=== PATIENT | female | born 2000 | race Caucasian/White ===

== ENCOUNTER 2023-08-12 08:00 | Outpatient (CLI) | payer MEDICAID ==
[2023-08-12 18:55] LABS: CHLAMYDIA TRACHOMATIS DNA NEGATIVE (NEGATIVE); NEISSERIA GONORRHOEAE DNA NEGATIVE (NEGATIVE)
[2023-08-12 19:18] LABS: BACTERIAL VAGINOSIS DNA NEGATIVE (NEGATIVE); CANDIDA GLABRATA DNA NEGATIVE (NEGATIVE); CANDIDA GROUP DNA POSITIVE (NEGATIVE); CANDIDA KRUSEI DNA NEGATIVE (NEGATIVE); TRICHOMONAS VAGINALIS DNA NEGATIVE (NEGATIVE)
== END 2023-08-12 23:59 | disposition home or self-care (01) ==
LOC: LAB.WC 08:00
PROVIDERS: ATTEND Nurse Practitioner
DX: N89.8 Other specified noninflammatory disorders of vagina (principal)
CPT/HCPCS: 81514; 81599; 87491; 87591; 87661

== ENCOUNTER 2024-02-07 07:36 | Outpatient (CLI) | payer MEDICAID ==
--- NOTE | 2024-02-07 12:50 | XRAY Report ---
PROCEDURE: Knee 4+V LT INDICATIONS: KNEE PAIN TECHNIQUE: 4 views of the knee(s) were acquired. COMPARISON: None. FINDINGS: Bones: No fractures or dislocations. No suspicious bony lesions. Postsurgical changes are present . Minimal medial compartment narrowing. Soft tissues: Minimal knee joint effusion. No suspicious soft tissue calcifications or masses. IMPRESSION: Postsurgical changes. Minimal medial compartment narrowing. Reviewed by: Nelida Villasenor MD on 02/07/2024 12:48 PM PDT Approved by: Nelida Villasenor MD on 02/07/2024 12:48 PM PDT Station ID: [id number]
== END 2024-02-07 07:37 | disposition home or self-care (01) ==
LOC: DI.N 07:36
PROVIDERS: ATTEND Orthopaedic Surgery
DX: M25.562 Pain in left knee (principal)